=== PATIENT | female | born 1965 | race Two or more races ===

== ENCOUNTER → 2016-06-16 | Outpatient (CLI) | payer BC ==
--- NOTE | 2016-06-16 15:07 | RAD ---
DATE: 06/16/16 EXAM: DIGITAL SCREEN BILAT W/CAD HISTORY: Routine screening COMPARISON: None available, this is a baseline exam. This study was interpreted with the benefit of Computerized Aided Detection (CAD). TECHNIQUE: Routine CC and MLO views of both breasts are obtained. FINDINGS: The breast tissue density is [B ] . Scattered fibroglandular densities are seen bilaterally. There are no dominant suspicious masses, suspicious microcalcifications or evidence of architectural distortion. Skin and nipples are intact IMPRESSION: Negative exam BI-RADS CATEGORY: 1 NEGATIVE RECOMMENDED FOLLOW-UP: 12M 12 MONTH FOLLOW-UP PQRS compliance statement: Patient information was entered into a reminder system with a target due date for the next mammogram. Mammography is a sensitive method for finding small breast cancers, but it does not detect them all and is not a substitute for careful clinical examination. A negative mammogram does not negate a clinically suspicious finding and should not result in delay in biopsying a clinically suspicious abnormality. "Our facility is accredited by the [employer] Mammography Program."
== END | disposition home or self-care (01) ==
LOC: MAMMO 10:03
PROVIDERS: ATTEND Family Medicine
DX: Z12.31 Encounter for screening mammogram for malignant neoplasm of breast (principal)
CPT/HCPCS: G0202; 77067

== ENCOUNTER 2017-05-27 23:24 | Emergency (ER) | payer BC ==
[2017-05-28 00:27] LABS: BILIRUBIN,URINE NEGATIVE (NEG); CLARITY,URINE CLOUDY; COLOR,URINE YELLOW; GLUCOSE,URINE NEGATIVE (NEG); NITRITE,URINE NEGATIVE (NEG); PH,URINE 5.5; PROTEIN,URINE NEGATIVE (NEG-TRACE)
[2017-05-28] MEDS: LIDO:MAALOX:DONNATAL 1:1:1 15 ML SINGLE DOSE SWSW ×2 (00:34)
[2017-05-28 00:43] LABS: BACTERIA,URINE FEW /HPF (0-FEW); RBC,URINE OCC /HPF (0-2); SQUAMOUS EPITHELIAL CELL,UR MOD /LPF
[2017-05-28 00:48] LABS: ADD MAN DIFF? NO
[2017-05-28 00:50] LABS: BASO % 1 % (0-3); EOS % 0 % (0-3); HEMATOCRIT 38.8 % (36.0-47.0); HEMOGLOBIN 13.2 g/dL (12.0-15.5); LYMPH % 21 % (24-48); MEAN CORPUSCULAR HEMOGLOBIN 27 pg (25-35); MEAN CORPUSCULAR HGB CONC 34 g/dL (31-37); MEAN CORPUSCULAR VOLUME 80 fL (79-100); MONO # 0.7 x10^3/uL (0.0-1.1); MONO % 15 % (0-9); NEUT # 2.8 x10^3uL (1.8-7.7); NEUT % 63 % (31-73); PLATELET COUNT 211 x10^3/uL (140-400); RED BLOOD COUNT 4.83 x10^6/uL (3.50-5.40); RED CELL DISTRIBUTION WIDTH 14.2 % (11.5-14.5); WHITE BLOOD COUNT 4.5 x10^3/uL (4.0-11.0)
[2017-05-28] MEDS: ONDANSETRON PF 4 MG/2 ML VIAL. IV ×2 (01:00)
[2017-05-28 01:06] LABS: ANION GAP 10 (6-14); BLOOD UREA NITROGEN 8 mg/dL (7-20); BUN/CREATININE RATIO 11 (6-20); CALCIUM 8.6 mg/dL (8.5-10.1); CARBON DIOXIDE 27 mmol/L (21-32); CHLORIDE 101 mmol/L (98-107); CREATININE 0.7 mg/dL (0.6-1.0); GFR 87.9; GLUCOSE 101 mg/dL (70-99); POTASSIUM 3.4 mmol/L (3.5-5.1); SODIUM 138 mmol/L (136-145)
[2017-05-28 01:12] LABS: ALBUMIN 3.6 g/dL (3.4-5.0); ALK PHOS 118 U/L (46-116); ALT (SGPT) 100 U/L (14-59); AST (SGOT) 148 U/L (15-37); LIPASE 234 U/L (73-393); TOTAL BILIRUBIN 0.2 mg/dL (0.2-1.0); TOTAL PROTEIN 7.3 g/dL (6.4-8.2)
== END 2017-05-28 01:56 | disposition home or self-care (01) ==
LOC: ER 23:24
DX: K21.9 Gastro-esophageal reflux disease without esophagitis (principal); N39.0 Urinary tract infection, site not specified
CPT/HCPCS: 36415; 71045; 80053; 81001; 83690; 85025; 87086; 93005; 99285-25

== ENCOUNTER → 2017-12-14 | Outpatient (CLI) | payer BC ==
[2017-05-28 01:30] VITALS: BP 108/63
[~2017-12-14] MED LIST: CIPR250T30 PO; FAMO-63 PO
--- NOTE | 2017-12-14 10:30 | RAD ---
Complete abdominal ultrasound dated 12/14/2017. No comparison available. Clinical data indication: Elevated liver function test. FINDINGS: Liver is homogeneous in echogenicity. No apparent hepatic mass. Intrahepatic and extra hepatic biliary tree normal in caliber. The common bile duct measures 4 mm. Gallbladder normal in size. There are echogenic shadowing foci within the lumen. No wall thickening or pericholecystic fluid. Right kidney measures 10.5 cm in length. Left kidney measures 12.1 cm in length. No hydronephrosis. Spleen is homogeneous in echogenicity and measures 9.9 cm longitudinal dimension. Limited visualized portions of pancreas aorta and IVC unremarkable. No significant ascites. IMPRESSION: 1. Cholelithiasis with no secondary signs of acute cholecystitis. Electronically signed by: Emanuel Mora MD (12/14/2017 10:28 AM) [id number]
== END | disposition home or self-care (01) ==
LOC: US 07:15
PROVIDERS: ATTEND Family Medicine
DX: K80.80 Other cholelithiasis without obstruction (principal); K21.9 Gastro-esophageal reflux disease without esophagitis
CPT/HCPCS: 76700

== ENCOUNTER → 2018-02-02 | Outpatient (CLI) | payer BC ==
[2017-05-28 01:30] VITALS: BP 108/63
[~2018-02-02] MED LIST changes: +DOCU50CA9 PO; +OXYC-323 PO
[2018-02-02 15:10] LABS: BASO % 1 % (0-3); EOS # 0.1 x10^3/uL (0.0-0.7); EOS % 2 % (0-3); HEMATOCRIT 38.8 % (36.0-47.0); HEMOGLOBIN 13.3 g/dL (12.0-15.5); LYMPH # 2.2 x10^3/uL (1.0-4.8); LYMPH % 33 % (24-48); MEAN CORPUSCULAR HEMOGLOBIN 28 pg (25-35); MEAN CORPUSCULAR HGB CONC 34 g/dL (31-37); MEAN CORPUSCULAR VOLUME 82 fL (79-100); MONO # 0.6 x10^3/uL (0.0-1.1); MONO % 9 % (0-9); NEUT # 3.7 x10^3uL (1.8-7.7); NEUT % 56 % (31-73); PLATELET COUNT 263 x10^3/uL (140-400); RED BLOOD COUNT 4.73 x10^6/uL (3.50-5.40); WHITE BLOOD COUNT 6.7 x10^3/uL (4.0-11.0)
[2018-02-02 15:20] LABS: PROTHROMBIN TIME PATIENT 12.7 SEC (11.7-14.0)
[2018-02-02 15:36] LABS: ALBUMIN 3.5 g/dL (3.4-5.0); CALCIUM 9.2 mg/dL (8.5-10.1); CREATININE 0.7 mg/dL (0.6-1.0); DIRECT BILIRUBIN 0.1 mg/dL (0.0-0.2); GFR 87.9; POTASSIUM 3.8 mmol/L (3.5-5.1); TOTAL BILIRUBIN 0.4 mg/dL (0.2-1.0); TOTAL PROTEIN 6.9 g/dL (6.4-8.2)
== END | disposition home or self-care (01) ==
LOC: SURGPAT 14:36
PROVIDERS: ATTEND Surgery
DX: Z01.818 Encounter for other preprocedural examination (principal); K80.20 Calculus of gallbladder without cholecystitis without obstruction; R94.5 Abnormal results of liver function studies
CPT/HCPCS: 36415; 80053; 80076; 85025; 85610; 85730

== ENCOUNTER 2018-02-10 08:27 | Day surgery (SDC) | payer BC ==
[~2018-02-10] VITALS: Ht 157.5 cm; Wt 83.9 kg
[~2018-02-10 08:27] MED LIST changes: -DOCU50CA9 PO; +GLUCAGON,HUMAN RECOMBINANT 1 MG/ML VIAL. ONE; +HYDROmorphone 2 MG/ML VIAL IV PRN; +MORPHINE SULFATE 2 MG/ML VIAL. IV PRN; +ONDANSETRON PF 4 MG/2 ML VIAL. IV PRN; -OXYC-323 PO; +SURGICEL HEMOSTAT 4X8 EACH. ONE; +fentaNYL PF VIAL 100 MCG/2 ML VIAL IV PRN
[2018-02-10] MEDS: IV RINGERS,LACTATED 1000ML 1,000 ML IV SCH (09:00)
[2018-02-10] MEDS ORDERED: ONDANSETRON PF 4 MG/2 ML VIAL. ONE (09:16)
[2018-02-10] MEDS ORDERED: DEXAMETHASONE SOD PHOS 20 MG/5 ML VIAL. ONE (09:16)
[2018-02-10] MEDS ORDERED: PROPOFOL 20 ML IV ONE (09:16)
[2018-02-10] MEDS ORDERED: LIDOCAINE 2% PF Vial for OR 5 ML VIAL. ONE (09:16)
[2018-02-10] MEDS ORDERED: ROCURONIUM 50 MG/5 ML VIAL. ONE (09:39)
[2018-02-10] MEDS ORDERED: MIDAZOLAM HCL/PF 2 MG/2 ML VIAL. ONE (09:40)
[2018-02-10] MEDS ORDERED: fentaNYL PF VIAL 100 MCG/2 ML VIAL ONE ×2 (09:40→11:40)
--- NOTE | 2018-02-10 09:58 | PDOC1 ---
History and Physical Date of Admission Date of Admission DATE: 02/10/18 TIME: 09:54 Identification/Chief Complaint Chief Complaint Elevated liver enzymes Source Source: Caregiver, Chart review History of Present Illness History of Present Illness Ms. Delgadillo is a 52-year-old lady who because of some elevated liver enzymes was sent for an ultrasound. This showed cholelithiasis. He is brought for cholecystectomy possible liver biopsy Past Medical History Cardiovascular: No pertinent hx Pulmonary: No pertinent hx GI: No pertinent hx Endocrine: Other (postmenopausal) Past Surgical History Past Surgical History: No pertinent history Family History Family History: Hypertension Social History Smoke: No ALCOHOL: none Current Medications Current Medications Current Medications Ondansetron HCl (Zofran) 4 mg PRN Q6HRS PRN IV NAUSEA/VOMITING; Start at 07:00; Stop 02/11/18 at 06:59 Fentanyl Citrate (Fentanyl 2ml Vial) 25 mcg PRN Q5MIN PRN IV MILD PAIN; Start 02/10/18 at 07:00; Stop 02/11/18 at 06:59 Fentanyl Citrate (Fentanyl 2ml Vial) 50 mcg PRN Q5MIN PRN IV MODERATE TO SEVERE PAIN; Start 02/10/18 at 07:00; Stop 02/11/18 at 06:59 Morphine Sulfate (Morphine Sulfate) 1 mg PRN Q10MIN PRN IV SEVERE PAIN; Start 02/10/18 at 07:00; Stop 02/11/18 at 06:59 Ringer's Solution 1,000 ml @ 30 mls/hr Q24H IV Last administered on at 09:00; Start 02/10/18 at 07:00; Stop 02/10/18 at 18:59 Lidocaine HCl (Xylocaine-Mpf 1% 2ml Vial) 2 ml PRN 1X PRN ID IV START; Start 02/10/18 at 07:00; Stop 02/11/18 at 06:59 Hydromorphone HCl (Dilaudid) 0.5 mg PRN Q10MIN PRN IV SEV PAIN, Second choice; Start 02/10/18 at 07:00; Stop 02/11/18 at 06:59 Prochlorperazine Edisylate (Compazine) 5 mg PACU PRN PRN IV NAUSEA, MRX1; Start 02/10/18 at 07:00; Stop 02/11/18 at 06:59 Cefazolin Sodium/ Dextrose 50 ml @ 100 mls/hr 1X PREOP PRN IV PRIOR TO PROCEDURE; Start 02/10/18 at 06:00; Stop 02/10/18 at 18:00 Bupivacaine HCl/ Epinephrine Bitart (Sensorcain-Mpf Epi 0.5%-1:[id number]) 30 ml STK -MED ONCE .ROUTE ; Start 02/10/18 at 06:56; Stop 02/10/18 at 07:56; Status DC Glucagon (Glucagen) 1 mg STK-MED ONCE .ROUTE ; Start 02/10/18 at 06:56; Stop 02/10/18 at 07:56; Status DC Iohexol (Omnipaque 300 Mg/ml) 100 ml STK-MED ONCE .ROUTE ; Start 02/10/18 at 06 :56; Stop 02/10/18 at 07:57; Status DC Cellulose (Surgicel Hemostat 4x8) 1 each STK-MED ONCE .ROUTE ; Start 02/10/18 at 06:57; Stop 02/10/18 at 07:57; Status DC Propofol 20 ml @ As Directed STK-MED ONCE IV ; Start 02/10/18 at 09:16; Stop 02/10/18 at 09:17; Status DC Dexamethasone Sodium Phosphate (Decadron) 20 mg STK-MED ONCE .ROUTE ; Start at 09:16; Stop 02/10/18 at 09:17; Status DC Lidocaine HCl (Lidocaine Pf 2% Vial) 5 ml STK-MED ONCE .ROUTE ; Start 02/10/18 at 09:16; Stop 02/10/18 at 09:17; Status DC Ondansetron HCl (Zofran) 4 mg STK-MED ONCE .ROUTE ; Start 02/10/18 at 09:16; Stop 02/10/18 at 09:17; Status DC Rocuronium Vantage (Zemuron) 50 mg STK-MED ONCE .ROUTE ; Start 02/10/18 at 09: 39; Stop 02/10/18 at 09:40; Status DC Fentanyl Citrate (Fentanyl 2ml Vial) 100 mcg STK-MED ONCE .ROUTE ; Start at 09:40; Stop 02/10/18 at 09:41; Status DC Midazolam HCl (Versed) 2 mg STK-MED ONCE .ROUTE ; Start 02/10/18 at 09:40; Stop 02/10/18 at 09:41; Status DC Active Scripts Active Reported No Known Medications Prior To Admisstion (Info) Each 1 Each MC Allergies Allergies: Coded Allergies: No Known Drug Allergies (Unverified , 02/10/18) ROS Review of System negative with exception of present complaints Physical Exam General: Alert, No acute distress HEENT: Atraumatic Lungs: Normal air movement Heart: RRR Abdomen: Soft, No tenderness Extremities: No clubbing Skin: No significant lesion Neuro: Normal speech Vitals Vitals Vital Signs Date Time Temp Pulse Resp B/P (MAP) Pulse Ox O2 Delivery O2 Flow Rate FiO2 02/10/18 08:46 98.2 74 16 94/51 97 Room Air 98.2 Images Images GB US reviewed VTE Prophylaxis Ordered VTE Prophylaxis Devices: Yes VTE Pharmacological Prophylaxi: No Assessment/Plan Assessment/Plan elevated LFTs, cholelithiasis With her daughter translating, risks of the surgery including but not limited to bleeding, infection, injury to bowel, liver, or bile duct with resultant need for further intervention. Possible open procedure, possible diarrhea postoperatively, possible need for drain. She understands and will proceed JEROME DOYLE MD Feb 10, 2018 09:58
[2018-02-10] MEDS ORDERED: GLYCOPYRROLATE 1 MG/5 ML VIAL. ONE (10:22)
[2018-02-10] MEDS: IOHEXOL 300 MG/ML 100ML VIAL. ONE (10:28)
[2018-02-10] MEDS: BUPIVAC MPF-EPI 0.5%-1:200000 30 ML VIAL. ONE (10:28)
[2018-02-10] MEDS ORDERED: SEVOFLURANE 61 TO 120 MINUTES. IH ONE (10:37)
[2018-02-10] MEDS ORDERED: NEOSTIGMINE METHYLSULFATE 5 MG/5 ML SYRINGE. ONE (10:37)
--- NOTE | 2018-02-10 10:54 | RAD ---
Intraoperative cholangiogram, 02/10/2018: HISTORY: Cholecystectomy 3 spot films from surgery are presented for review. Contrast has been injected into the cystic duct remnant. 0.17 minutes of fluoroscopy time was utilized. Contrast extends into the duodenum. There is narrowing of the distal duct at the ampullary level, likely due to ampullary spasm. The bile ducts are otherwise of normal caliber. No filling defect is seen in the common duct to suggest a retained calculus. The intrahepatic ducts are unremarkable. IMPRESSION: 1. No evidence of a retained calculus in the biliary tree. 2. Narrowing of the distal common bile duct at the ampulla, likely due to ampullary spasm. Electronically signed by: Alton Gutierrez MD (02/10/2018 10:51 AM) [facility]
--- NOTE | 2018-02-10 11:09 | DISCH ---
DISCHARGE INSTRUCTIONS Condition on Discharge Condition on Discharge: Stable Activity After Discharge Activity Instructions for Disc: Activity as tolerated, Avoid exertion Lifting Instructions after Dis: No heavy lifting Driving Instructions after Dis: Do not drive (3-4 days) Diet after Discharge Diet after Discharge: Regular Wound Incision Care Wound/Incision Care: Ice to area for comfort Other wound/incision instructi: august shower Thursday Follow-Up Follow up with: Chase next week JEROME DOYLE MD Feb 10, 2018 11:09
--- NOTE | 2018-02-10 11:14 | PDOC ---
BRIEF OPERATIVE NOTE Date: Feb 10, 2018 Pre-Op Diagnosis elevated LFTs, cholelithiasis Post-Op Diagnosis same Procedure Performed l/s angelina with grams, liver biopsy Surgeon Chase Spring Former [facility]A Anesthesia Type: General Blood Loss 10cc IV Fluid 500cc Specimens Obtained GB, liver biopsy Findings supple GB, normal grams, generous liver Complications none Operative Note Wk # [id number] JEROME DOYLE MD Feb 10, 2018 11:14
[2018-02-10] MEDS ORDERED: OXYC-323 PO (11:39)
[2018-02-10] MEDS ORDERED: DOCU50CA9 PO (11:41)
--- NOTE | 2018-02-10 11:41 | OP ---
DATE OF SURGERY: 02/10/2018 PREOPERATIVE DIAGNOSIS: Elevated liver function test with cholelithiasis. POSTOPERATIVE DIAGNOSIS: Elevated liver function test with cholelithiasis. PROCEDURE: Laparoscopic cholecystectomy with cholangiograms and liver biopsy. SURGEON: Gary Doyle MD FIRST AID OFFICER: BONITA Baker. ANESTHESIA: General endotracheal. BLOOD LOSS: 10. INTRAVENOUS FLUIDS: 500. INDICATIONS: The patient is a 52-year-old with elevated LFTs, here for liver biopsy and cholecystectomy. OPERATIVE FINDINGS: The liver was generous, smooth, and sharp. Gallbladder was supple. Cholangiograms showed no retained stones, but some tapering of the distal common bile duct. DESCRIPTION OF PROCEDURE: The patient brought to the operating suite, given a general endotracheal anesthetic and the abdomen prepped and draped in the usual sterile fashion. A supraumbilical incision was made after infiltrating local anesthetic and a 5 mm Visiport used to safely gain access into the abdominal cavity, taking care to avoid injury to abdominal contents. Pneumoperitoneum established. Camera inserted. Inspection carried out with results as noted above. With the table in reverse Trendelenburg rolled to the left, the epigastric, midclavicular, and lateral ports were placed under direct vision. The gallbladder was retracted superolaterally and the cystic duct and cystic artery were identified. The artery was on the anterior inferior aspect of the duct and as such was ligated first after clipping. Cholangiograms were made. This showed some tapering of the distal common bile duct, otherwise unremarkable. Free flow of contrast into the duodenum. In light of this, the catheter was removed. The cystic duct was clipped x 3 and divided, taking care to avoid injury or compromise of the common duct. Gallbladder was then freed from the bed with cautery dissection and placed in an EndoCatch bag. No evidence of bleeding or bile leak was seen. Intra-abdominal pressure decreased to 10 cm of water and under direct vision, the Derrick-Cut biopsy needle was passed once into the liver harvesting a sliver of tissue, which was passed off. Hemostasis with cautery was good. Table returned to level. Gallbladder delivered through the epigastric incision. Epigastric incision was closed with 0 Vicryl suture. Intra-abdominal pressure decreased to 6 cm of water. Prior to removal of the gallbladder from the abdominal cavity, a 19-Portuguese round David drain was brought through the epigastric port out the lateral port, sewn to the skin with a silk stitch and left in the subhepatic space for postoperative drainage. Intra-abdominal pressure decreased to 6 cm of water. No bleeding from the epigastric closure or from the midclavicular port site after its removal or from the drain site. Abdomen decompressed, camera slowly removed, no bleeding seen. Skin incisions closed with subcuticular 4-0 Monocryl. Steri-Strips and sterile dressings applied. The patient awakened from her anesthetic and taken to the recovery room in satisfactory condition. GARY DOYLE MD DR: GLYNN/ele JOB#: [id number] / [id number]
[2018-02-10] MEDS: LIDOCAINE 1% PF 2 ML VIAL. ID PRN (11:46)
[2018-02-10] MEDS: fentaNYL PF VIAL 100 MCG/2 ML VIAL IV PRN (11:47)
[2018-02-10] MEDS: oxyCODONE/APAP 5/325 1 TAB TABLET PO ONE (13:51)
[2018-02-10] MEDS: PROCHLORPERAZINE 10 MG/2 ML VIAL. IV PRN (14:03)
[2018-02-10 14:10] VITALS: BP 108/68
--- NOTE | 2018-02-12 09:09 | PATHOLOGY ---
[facility] Accession Number: [id number] . 01 Material submitted: . PART A: GALLBLADDER PART B: LIVER BIOPSY . 01 Clinical history: . Cholelithiasis and elevated LFTs . 02 Diagnosis: A. Gallbladder, laparoscopic cholecystectomy: - Cholelithiasis. - Chronic cholecystitis. . B. Liver, needle biopsies: - No significant fatty change, inflammation,fibrosis or evidence of malignancy (Preliminary report). . (JPM:aniya; 02/11/2018) MBR/02/12/2018 . 02 Comment: The liver biopsy findings are preliminary. A final report pending consultation will be reported separately. . Special stains performed: Trichrome Retic Iron PAS PAS with diastase . Those special stains are performed on both B1 and B2. . (JPM:aniya; 02/11/2018) . 02 Electronically signed: . Arun Whipple MD, Pathologist NPI- [id number] . 01 Gross description: . A. The specimen is received in formalin, labeled "Basia Bryant, gallbladder", is a partially collapsed 6.5 x 2.5 x 1.6 cm gallbladder with a glistening, smooth and-purple serosa. The lumen is filled with scant yellow-green bile and two yellow-green irregular surfaced calculi measuring 1.5 x 1.5 x 1.2 cm and 1.6 x 1.5 x 1.0 cm. The mucosa is torres-brown and granular and the wall measures up to 0.1 cm thick. No discrete masses are present. Level Vial Grinder tissue is submitted in A1. . B.The specimen is received in formalin, labeled "Basia Bryant, liver biopsy", are three torres brown needle cores measuring 0.4, 0.5 and a 0.6 cm in length and up to 0.1 cm in diameter, entirely submitted in B1-B2. (SWS; 02/10/2018) SHS/SHS . 02 Pathologist provided ICD-10: K80.10 . 02 CPT . 502077, [id number] Specimen Comment: A courtesy copy of this report has been sent to Specimen Comment: [phone], . Specimen Comment: Report sent to / DR BARNES Specimen Comment: A duplicate report has been generated due to demographic updates. Performed at: 01 [facility] [address], [place] [id number] MD Mohinder Davidson MD Phone: [phone] Performed at: 02 [facility] [address] [place], [place] [id number] MD Arun Whipple MD Phone: [phone]
== END 2018-02-10 14:21 | disposition home or self-care (01) ==
LOC: SURG 08:27
PROVIDERS: ATTEND Surgery
DX: K80.10 Calculus of gallbladder with chronic cholecystitis without obstruction (principal); R79.89 Other specified abnormal findings of blood chemistry; Z82.49 Family history of ischemic heart disease and other diseases of the circulatory system; Z79.899 Other long term (current) drug therapy
CPT/HCPCS: 47001; 47563; 74300; 88304; 88307; 88313; A7015; J0690; J0780; J1100; J2001; J2250; J2405; J2704; J2710; J3010; J3490; J7030; Q9967; J1610